=== PATIENT | female | born 1970 | race African-American/Black ===

== ENCOUNTER 2016-09-27 17:00 | Emergency (ER) | payer OTHER ==
[~2016-09-27] VITALS: Ht 188 cm; Wt 114.8 kg
[~2016-09-27 17:00] MED LIST: ABILIFY10 MG PO; AMBIEN10 MG PO; INDERAL10 MG PO; ZOLOFT50 MG PO
[2016-09-27 17:40] LABS: HEMATOCRIT 39.1 % (36.0-46.0); MCH 26.2 PG (29.0-34.0); MCV 81.8 FL (83-99); MEAN PLAT.VOLUME 9.8 uM^3 (9.5-12.4); PLATELET COUNT 280 K/uL (156-360); RBC DIS.WIDTH-CV 13.5 % (11.8-14.6); RBC DIS.WIDTH-SD 40.6 % (39-53); RED BLOOD COUNT 4.78 M/uL (3.80-5.20)
[2016-09-27 17:54] LABS: CHLORIDE 109 mEq/L (99-109); POTASSIUM 3.8 mEq/L (3.7-5.4); SODIUM 142 mEq/L (136-147)
[2016-09-27 17:56] LABS: GLUCOSE 97 mg/dL (70-99)
[2016-09-27 17:57] LABS: ANION GAP 8 MEQ/L (2-14)
[2016-09-27 18:00] LABS: GFR ESTIMATE (CALCULATED) > 59 mL/min/
[2016-09-27 18:01] LABS: UREA NITROGEN (BUN) 14 mg/dL (9-23)
[2016-09-27 18:11] LABS: QUANTITATIVE HCG < 4.0 MIU/ML
[2016-09-27] MEDS ORDERED: MOTRIN800 MG PO (20:11)
[2016-09-27 20:25] VITALS: BP 132/62
== END 2016-09-27 20:26 | disposition home or self-care (01) ==
LOC: EME 17:00
PROVIDERS: Physician Assistant Medical
DX: N93.8 Other specified abnormal uterine and vaginal bleeding (principal); F17.200 Nicotine dependence, unspecified, uncomplicated
CPT/HCPCS: 76856; 80048; 81003; 84702; 85027; 99281; 99283

== ENCOUNTER 2016-11-10 14:28 | Emergency (ER) | payer OTHER ==
[~2016-11-10] VITALS: Ht 188 cm; Wt 11.6 kg
[~2016-11-10 14:28] MED LIST changes: +MOTRIN800 MG PO
[2016-11-10] MEDS ORDERED: TYLENOL WITH C1 EACH PO (14:52)
[2016-11-10 15:09] VITALS: BP 156/124
== END 2016-11-10 15:10 | disposition home or self-care (01) ==
LOC: EME 14:28
DX: K02.9 Dental caries, unspecified (principal); S02.5XXA Fracture of tooth (traumatic), initial encounter for closed fracture; F17.200 Nicotine dependence, unspecified, uncomplicated
CPT/HCPCS: 99281; 99283